=== PATIENT | female | born 1970 | race Caucasian/White ===

== ENCOUNTER 2018-08-30 16:57 | Emergency (ER) | payer BC ==
--- NOTE | 2018-08-30 17:07 | EDPHY ---
H & P Stated Complaint: L leg DVT on US Time Seen by Provider: 08/30/18 17:06 HPI/ROS: CHIEF COMPLAINT: Lower extremity DVT HISTORY OF PRESENT ILLNESS: The patient presents to the ED with recently diagnosed lower extremity DVT. She has been immobilized with a ligamentous injury involving her left the following a ski injury on August 18. The patient denies any chest pain or shortness of breath. She was evaluated by Dr. Mejia from Orthopedic surgery who obtained the outpatient ultrasound. Patient denies prior history of PE or DVT. She is not a smoker. She denies significant past medical history. REVIEW OF SYSTEMS: A comprehensive 10 point review of systems is otherwise negative aside from elements mentioned in the history of present illness. Source: Patient Exam Limitations: No limitations - Personal History Current Tetanus/Diphtheria Vaccine: Unsure Current Tetanus Diphtheria and Acellular Pertussis (TDAP): Unsure - Medical/Surgical History Hx Asthma: No Hx Chronic Respiratory Disease: No Hx Diabetes: No Hx Cardiac Disease: No Hx Renal Disease: No Hx Cirrhosis: No Hx Alcoholism: No Hx HIV/AIDS: No Hx Splenectomy or Spleen Trauma: No Other PMH: ASA surgery R eye, - Social History Smoking Status: Never smoked - Physical Exam Exam: General Appearance: Alert, no distress Eyes: Pupils equal and round no pallor or injection ENT, Mouth: Mucous membranes moist Respiratory: There are no retractions, lungs are clear to auscultation Cardiovascular: Regular rate and rhythm Gastrointestinal: Abdomen is soft and nontender, no masses, bowel sounds normal Neurological: A&O, normal motor function, normal sensory exam, normal cranial nerves Skin: Warm and dry, no rashes Musculoskeletal: Neck is supple nontender Extremities: Splint to left lower extremity, left calf tenderness present, 2+ dorsalis pedis and posterior tibial pulses noted bilaterally Constitutional: Initial Vital Signs Temperature (C) 37 C 08/30/18 17:01 Heart Rate 45 L 08/30/18 17:01 Respiratory Rate 16 08/30/18 17:01 Blood Pressure 138/83 H 08/30/18 17:01 O2 Sat (%) 98 08/30/18 17:01 O2 Delivery Mode Room Air Allergies/Adverse Reactions: No Known Allergies Allergy (Unverified 08/30/18 17:01) Home Medications: Medication Instructions Recorded Ibuprofen 08/30/18 Turmeric 01/29/19 Tylenol 08/30/18 Medical Decision Making - Diagnostics Imaging Results: Imaging Impressions Extremity Venous Study 08/30/18 18:00 Impression: Positive deep venous thrombosis in the left calf veins. Findings and recommendations given to DARIEL Veronica at 16:52 hour, 2018. Final report concurs with initial preliminary interpretation. ED Course/Re-evaluation: Patient presents to the ED with a lower extremity DVT. She has no symptoms suggestive of PE. The patient will be treated with Xarelto. She is started 15 mg twice daily for her 1st 22 days. She is referred to primary care provider and has been instructed that she will begin taking 20 mg of Xarelto once a day thereafter. Patient is instructed to return to the ED for any chest pain, shortness of breath, signs of bleeding or other concerns. - Data Points Laboratory Results: 08/30/18 17:40 POC Hgb 15.0 gm/dL gm/dL (12.6-16.3) POC Hct 44 % % (38-47) POC Sodium 141 mEq/L mEq/L (135-145) POC Potassium 3.8 mEq/L mEq/L (3.3-5.0) POC Chloride 104 mEq/L mEq/L (97-110) POC BUN 8 mg/dL mg/dL (7-23) POC Creatinine 0.7 mg/dL mg/dL (0.6-1.0) POC Glucose 94 mg/dL mg/dL (70-100) Point of Care Test Results: Chemistry 08/30/18 17:40 POC Sodium 141 mEq/L mEq/L (135-145) POC Potassium 3.8 mEq/L mEq/L (3.3-5.0) POC Chloride 104 mEq/L mEq/L (97-110) POC BUN 8 mg/dL mg/dL (7-23) POC Creatinine 0.7 mg/dL mg/dL (0.6-1.0) POC Glucose 94 mg/dL mg/dL (70-100) ISTAT H&H 08/30/18 17:40 POC Hgb 15.0 gm/dL gm/dL (12.6-16.3) POC Hct 44 % % (38-47) Departure - Departure Disposition: Home, Routine, Self-Care Clinical Impression: DVT (deep venous thrombosis) Condition: Good Instructions: Deep Vein Thrombosis (ED) Additional Instructions: 1. You have been given the contact number for Dr. Barry who is on-call for primary care. Please schedule a follow-up appointment with her regarding your DVT. 2. You will be started on Xarelto 15 mg twice a day for the next 22 days. You will need to be transitioned to 20 mg once a day thereafter. 3. Please return to the ED for any chest pain, shortness of breath, markedly worsening symptoms or other concerns. Referrals: Rita Barry MD [Medical Doctor] - As per Instructions
[2018-08-30 18:05] VITALS: BP 136/80
== END 2018-08-30 18:05 | disposition home or self-care (01) ==
DX: I82.442 Acute embolism and thrombosis of left tibial vein (principal); I82.432 Acute embolism and thrombosis of left popliteal vein
CPT/HCPCS: 82435-PO; 82565-PO; 82947-PO; 84132-PO; 84295-PO; 84520-PO; 85014-ER

== ENCOUNTER → 2018-10-10 | Outpatient (CLI) | payer BC | LOC: FIMAGING 15:33 | PROVIDERS: ATTEND Family Medicine | DX: Z86.718 Personal history of other venous thrombosis and embolism (principal); Z79.01 Long term (current) use of anticoagulants ==